=== PATIENT | male | born 1955 | race Caucasian/White ===

== ENCOUNTER 2020-04-16 08:31 | Inpatient (IN) ==
[2020-04-16] MEDS ORDERED: DIAZEPAM 5 MG TABLET PO ONE (09:36)
[2020-04-16] MEDS ORDERED: FAMOTIDINE 20 MG TABLET PO ONE (09:36)
[2020-04-16] MEDS: LACTATED RINGERS 1,000 ML IV SCH ×2 (09:49→13:21)
[2020-04-16] MEDS ORDERED: DEXMEDETOMIDINE 200 MCG/2 ML VIAL ONE (10:29)
[2020-04-16] MEDS ORDERED: MIDAZOLAM 2 MG/2 ML VIAL ONE (10:29)
[2020-04-16] MEDS ORDERED: LIDOCAINE 1% 5 ML VIAL ONE (10:31)
[2020-04-16] MEDS ORDERED: DEXAMETHASONE 4 MG/1 ML VIAL ONE (10:31)
[2020-04-16] MEDS ORDERED: ROPIVACAINE 0.5% 30 ML VIAL ONE (10:31)
[2020-04-16] MEDS ORDERED: ROCURONIUM 50 MG/5 ML VIAL IV ONE (10:54)
[2020-04-16] MEDS ORDERED: propofoL 200 MG/20 ML VIAL IV ONE (10:54)
[2020-04-16] MEDS ORDERED: SUCCINYLCHOLINE 200 MG/10 ML VIAL ONE (10:54)
[2020-04-16] MEDS ORDERED: ONDANSETRON 4 MG/2 ML VIAL ONE (10:54)
[2020-04-16] MEDS ORDERED: LIDOCAINE 2% 5 ML VIAL ONE (10:54)
[2020-04-16] MEDS ORDERED: VANCOMYCIN 1,000 MG VIAL ONE (11:14)
[2020-04-16] MEDS ORDERED: PHENYLEPHRINE 1 MG/10 ML SYRINGE IV ONE (11:15)
[2020-04-16] MEDS ORDERED: fentaNYL 100 MCG/2 ML VIAL ONE (11:19)
[2020-04-16] MEDS ORDERED: SEVOFLURANE 1 UNIT/15 MINUTE INH ONE ×4 (11:27→11:51)
[2020-04-16] MEDS ORDERED: NEOSTIGMINE 10 MG/10 ML VIAL ONE (11:39)
[2020-04-16] MEDS ORDERED: GLYCOPYRROLATE 0.4 MG/2 ML VIAL ONE (11:39)
[2020-04-16] MEDS ORDERED: SODIUM CHLORIDE 0.9% 250 ML IV ONE (11:42)
[2020-04-16] MEDS ORDERED: KETOROLAC 30 MG/1 ML VIAL ONE (11:49)
[2020-04-16] MEDS ORDERED: BISACODYL 10 MG SUPP RECTAL PRN (12:00)
[2020-04-16] MEDS ORDERED: MAGNESIUM HYDROXIDE SUSP 30 ML UDCUP PO PRN (12:00)
[2020-04-16] MEDS ORDERED: LACTULOSE 20 GM/30 ML UDCUP PO PRN (12:00)
[2020-04-16] MEDS ORDERED: diphenhydrAMINE CAP 25 MG CAPSULE PO PRN (12:00)
[2020-04-16] MEDS ORDERED: PROMETHAZINE 25 MG/1 ML VIAL IM PRN (12:00)
[2020-04-16] MEDS ORDERED: ONDANSETRON 4 MG/2 ML VIAL IV PRN ×2 (12:00→12:36)
[2020-04-16] MEDS ORDERED: HYDROmorphone 2 MG/1 ML VIAL ONE (12:26)
[2020-04-16] MEDS: HYDROmorphone 2 MG/1 ML VIAL IV PRN ×4 (12:27→14:10)
[2020-04-16] MEDS ORDERED: MORPHINE 4 MG/1 ML VIAL IV PRN (14:43)
[2020-04-16] MEDS: MORPHINE 4 MG/1 ML VIAL IV PRN ×2 (18:26→22:55)
[2020-04-16] MEDS: VANCOMYCIN INJ 1,000 MG in SODIUM CHLORIDE 0.9% 250 ML IV SCH (22:59)
[2020-04-17 06:34] LABS: Calcium 8.7 MG/DL (8.5-10.1); Osmolality,Calculated 275.7 MOS/KG (273-304)
[2020-04-17] MEDS ORDERED: fentaNYL 100 MCG/2 ML VIAL ONE ×2 (09:14→11:00)
[2020-04-17] MEDS ORDERED: MIDAZOLAM 2 MG/2 ML VIAL ONE (09:15)
[2020-04-17] MEDS ORDERED: propofoL 200 MG/20 ML VIAL IV ONE (09:16)
[2020-04-17] MEDS ORDERED: LIDOCAINE 2% 5 ML VIAL ONE (09:16)
[2020-04-17] MEDS ORDERED: TOBRAMYCIN 1.2 GM VIAL TOP ONE (09:32)
[2020-04-17] MEDS ORDERED: VANCOMYCIN 500 MG VIAL ONE (09:32)
[2020-04-17] MEDS ORDERED: DEXAMETHASONE 4 MG/1 ML VIAL ONE (10:11)
[2020-04-17] MEDS ORDERED: ONDANSETRON 4 MG/2 ML VIAL ONE (10:11)
[2020-04-17] MEDS ORDERED: PHENYLEPHRINE 1 MG/10 ML SYRINGE IV ONE (10:23)
[2020-04-17] MEDS: ASPIRIN CHEW 81 MG TABLET PO SCH (10:26)
[2020-04-17] MEDS ORDERED: ePHEDrine 50 MG/ML VIAL ONE (10:26)
[2020-04-17] MEDS ORDERED: SEVOFLURANE 1 UNIT/15 MINUTE INH ONE (11:10)
[2020-04-17] MEDS ORDERED: ONDANSETRON 4 MG/2 ML VIAL IV PRN (11:29)
[2020-04-17] MEDS ORDERED: HYDROmorphone 2 MG/1 ML VIAL IV PRN (11:29)
[2020-04-17] MEDS: VANCOMYCIN INJ 1,000 MG in SODIUM CHLORIDE 0.9% 250 ML IV SCH (15:03)
[2020-04-17] MEDS: VANCOMYCIN INJ 1,500 MG in SODIUM CHLORIDE 0.9% 500 ML IV SCH (20:31)
[2020-04-18] MEDS: VANCOMYCIN INJ 1,500 MG in SODIUM CHLORIDE 0.9% 500 ML IV SCH (08:07)
[2020-04-18] MEDS: ASPIRIN CHEW 81 MG TABLET PO SCH (08:07)
[2020-04-18 11:46] VITALS: BP 123/71
== END 2020-04-18 14:25 | disposition home health service (06) | DRG 478 ==
LOC: N.OR 08:31 → N.SDSINP 08:41 → N.3E 14:36
PROVIDERS: ADMIT Orthopaedic Surgery; ATTEND Orthopaedic Surgery